=== PATIENT | female | born 1970 | race Caucasian/White ===

== ENCOUNTER 2017-04-02 10:31 | Emergency (ER) | payer BC ==
[2017-04-02 12:54] VITALS: BP 113/67
--- NOTE | 2017-04-02 13:42 | UC ---
Throat Pain/Nasal Meng HPI - HPI Summary HPI Summary: ONE WEEK OF SINUS PRESSURE CONGESTION; FEVER LAST NIGHT. NO COUGH - History of Current Complaint Chief Complaint: UCRespiratory Stated Complaint: SINUS PRESSURE,THROAT,EAR COMPLAINT Time Seen by Provider: 04/02/17 12:13 Hx Obtained From: Patient Hx Last Menstrual Period: 03/22/17 Onset/Duration: Gradual Onset, Lasting Days, Still Present Severity: Moderate Pain Intensity: 0 Pain Scale Used: 0-10 Numeric Cough: None Associated Signs & Symptoms: Positive: Hoarseness, Sinus Discomfort, Nasal Discharge, Fever - Epiglottits Risk Factors Epiglottis Risk Factors: Negative - Allergies/Home Medications Allergies/Adverse Reactions: Allergies Allergy/AdvReac Type Severity Reaction Status Date / Time No Known Allergies Allergy Verified 04/02/17 11:29 Home Medications: Home Medications Montelukast Sodium TAB* [Singulair 10 MG TAB*] 10 mg PO DAILY 04/02/17 [History Confirmed 04/02/17] Multiple Vitamin [Multiple Vitamins] 1 tab PO DAILY 04/02/17 [History Confirmed 04/02/17] PMH/Surg Hx/FS Hx/Imm Hx Previously Healthy: Yes - Surgical History Surgical History: Yes Surgery Procedure, Year, and Place: [place] [facility] - Family History Known Family History: Positive: Unknown Negative: Hypertension - Social History Occupation: Employed Full-time Lives: With Family Alcohol Use: Rare Substance Use Type: None Smoking Status (MU): Never Smoked Tobacco - Immunization History Most Recent Influenza Vaccination: jun 2016 Review of Systems Constitutional: Fever Skin: Negative Eyes: Negative ENT: Sore Throat, Nasal Discharge, Sinus Congestion, Sinus Pain/Tenderness Respiratory: Negative Cardiovascular: Negative Gastrointestinal: Negative Genitourinary: Negative Motor: Negative Neurovascular: Negative Musculoskeletal: Negative Neurological: Negative Psychological: Negative All Other Systems Reviewed And Are Negative: Yes Physical Exam Triage Information Reviewed: Yes Appearance: No Pain Distress, Well-Nourished, Ill-Appearing Vital Signs: Initial Vital Signs Temp 98.7 F 04/02/17 11:25 Pulse 97 04/02/17 11:25 Resp 16 04/02/17 11:25 BP 140/73 04/02/17 11:25 Pulse Ox 98 04/02/17 11:25 Vital Signs Reviewed: Yes Eye Exam: Normal ENT: Positive: Hearing grossly normal, Pharynx normal, TM bulging, TM dull Dental Exam: Normal Neck exam: Normal Neck: Positive: Supple, Nontender Respiratory Exam: Normal Respiratory: Positive: Chest non-tender, Lungs clear, Normal breath sounds, No respiratory distress, No accessory muscle use Cardiovascular Exam: Normal Cardiovascular: Positive: RRR, No Murmur, Pulses Normal Abdominal Exam: Normal Abdomen Description: Positive: Nontender, No Organomegaly Musculoskeletal Exam: Normal Neurological Exam: Normal Psychological Exam: Normal Skin Exam: Normal Throat Pain/Nasal Course/Dx - Differential Dx/Diagnosis Differential Diagnosis/HQI/PQRI: Sinusitis, Tonsillitis, URI Provider Diagnoses: SINUSITIS Discharge - Discharge Plan Condition: Stable Disposition: HOME Prescriptions: Amoxicillin/Clavulanate TAB* [Augmentin TAB 875*] 875 mg PO BID #20 tab Patient Education Materials: Sinusitis (ED) Referrals: Tank Levy MD [Primary Care Provider] -
== END 2017-04-02 12:54 | disposition home or self-care (01) ==
LOC: UCEAST 10:31
DX: J32.9 Chronic sinusitis, unspecified (principal); R50.9 Fever, unspecified
CPT/HCPCS: 99212; G0463

== ENCOUNTER 2017-07-25 10:23 | Emergency (ER) | payer BC ==
[2017-07-25 10:30] VITALS: BP 131/63
--- NOTE | 2017-07-25 10:58 | UC ---
Throat Pain/Nasal Meng HPI - HPI Summary HPI Summary: ONE WEEK OF COUGH, WHEEZING, SINUS CONGESTION. HAD BEEN USING ALBUTEROL INHALER. NO FEVER. - History of Current Complaint Chief Complaint: UCRespiratory Stated Complaint: COUGH WHEEZING SOB HEAD CONGESTION Time Seen by Provider: 07/25/17 10:31 Hx Obtained From: Patient Hx Last Menstrual Period: 06/29 Onset/Duration: Gradual Onset, Lasting Weeks Severity: Moderate Cough: Nonproductive Associated Signs & Symptoms: Positive: Hoarseness - Epiglottits Risk Factors Epiglottis Risk Factors: Negative - Allergies/Home Medications Allergies/Adverse Reactions: Allergies Allergy/AdvReac Type Severity Reaction Status Date / Time No Known Allergies Allergy Verified 04/02/17 11:29 PMH/Surg Hx/FS Hx/Imm Hx Previously Healthy: Yes - Surgical History Surgical History: Yes Surgery Procedure, Year, and Place: [place] [facility]eth - Family History Known Family History: Positive: Unknown Negative: Hypertension - Social History Occupation: Employed Full-time Lives: With Family Alcohol Use: Rare Substance Use Type: None Smoking Status (MU): Never Smoked Tobacco - Immunization History Most Recent Influenza Vaccination: jun 2016 Review of Systems Constitutional: Negative Skin: Negative Eyes: Negative ENT: Sinus Congestion Respiratory: Cough Cardiovascular: Negative Gastrointestinal: Negative Genitourinary: Negative Motor: Negative Neurovascular: Negative Musculoskeletal: Negative Neurological: Negative Psychological: Negative Is Patient Immunocompromised?: No All Other Systems Reviewed And Are Negative: Yes Physical Exam Triage Information Reviewed: Yes Appearance: No Pain Distress, Well-Nourished, Ill-Appearing Vital Signs: Initial Vital Signs Temp 97.7 F 07/25/17 10:28 Pulse 93 07/25/17 10:28 Resp 17 07/25/17 10:28 BP 131/63 07/25/17 10:28 Pulse Ox 100 07/25/17 10:28 Vital Signs Reviewed: Yes Eye Exam: Normal ENT: Positive: Pharynx normal, Nasal congestion, Nasal drainage, TM bulging, TM dull Dental Exam: Normal Neck exam: Normal Neck: Positive: Supple, Nontender, No Lymphadenopathy Respiratory Exam: Other - COUGH Respiratory: Positive: Chest non-tender, Lungs clear, Normal breath sounds, No respiratory distress, No accessory muscle use. Negative: Wheezing - RECENTLY TOOK ALBUTEROL INHALER Cardiovascular Exam: Normal Cardiovascular: Positive: RRR, No Murmur, Pulses Normal Abdominal Exam: Normal Musculoskeletal Exam: Normal Musculoskeletal: Positive: Strength Intact, ROM Intact Neurological Exam: Normal Psychological Exam: Normal Skin Exam: Normal Throat Pain/Nasal Course/Dx - Differential Dx/Diagnosis Differential Diagnosis/HQI/PQRI: Pharyngitis, Sinusitis, Tonsillitis, URI Provider Diagnoses: SINUSITIS; BRONCHITIS WITH BRONCHOSPASM Discharge - Discharge Plan Condition: Stable Disposition: HOME Prescriptions: Amoxicillin/Clavulanate TAB* [Augmentin TAB 875*] 875 mg PO BID #20 tab Benzonatate CAP* [Tessalon 100 MG CAP*] 100 mg PO TID PRN #15 cap PRN Reason: Cough Patient Education Materials: Sinusitis (ED), Acute Bronchitis (ED) Referrals: Tank Levy MD [Primary Care Provider] -
== END 2017-07-25 10:58 | disposition home or self-care (01) ==
LOC: UCEAST 10:23
DX: J32.9 Chronic sinusitis, unspecified (principal); J20.9 Acute bronchitis, unspecified
CPT/HCPCS: 99212; G0463

== ENCOUNTER 2019-09-27 11:35 | Emergency (ER) | payer BC ==
--- OUTSIDE RECORDS SUMMARY | 2019-09-27 11:41 | XMS REPORT | Continuity of Care Document ---
:1970 Author Organization [facility] Address [address] [place] [address] Phone Care Team Providers Name Role Phone Mary Bush MD Unavailable Unavailable Allergies, Adverse Reactions, Alerts Substance Reaction Status No Known Allergies Active Medications Medication Instructions Dosage Effective Dates Status Comments (start - stop) halobetasol Apply thin layer - Active propionate 0.05 % to affected area. topical ointment Rub in well. BID x2w, qhs x2w, qod x4w biw x4w then biw to q1w prn irritation norethindrone take 1 tablet by 1.00 tablet - Active (contraceptive) 0.35 oral route every mg tablet day magnesium 30 mg - Active tablet MULTIVITAMINS Not Available - Active (unknown strength) IRON (unknown take 1 tablet by Not Available - Active strength) oral route every 3 days CALCIUM (unknown Not Available - Active strength) SINGULAIR (unknown Not Available - Active strength) Problems Condition Effective Dates (start - Clinical Status Comments stop) Body mass index (BMI) 37.0-37.9, - adult Lichen sclerosus et atrophicus Human immunodeficiency virus [HIV] - counseling Pruritus vulvae Oth noninflammatory disorders of vulva and perineum 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) w/o abn findings Encounter for oth screening for malignant neoplasm of breast Encounter for surveillance of contraceptive pills Encntr screen mammogram for malignant neoplasm of breast 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) w/o abn findings Encounter for oth screening for malignant neoplasm of breast Encounter for surveillance of contraceptive pills Encntr screen mammogram for malignant neoplasm of breast Encounter for surveillance of contraceptive pills Encounter for oth screening for malignant neoplasm of breast Encounter for oth screening for malignant neoplasm of breast Encounter for surveillance of contraceptive pills 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 Other Agitator Operator.Svc. STI Results Test Name Date and Time Measure Units Reference Range Abnormal Flag Status Comments No information Advance Directives Directive Yes / No Effective Date File Name No information Encounters Encounter Practice Location Reason(s) Diagnoses Date Provider Providers Description For Visit Copied on Encounter OFFICE/OUTPA [facility] Vaginal Lichen sclerosus et Nov-0 Rachelle Referring TIENT VISIT, [facility] [place] a/o Vulvar atrophicus 5-201 Mary. Provider: EST [facility] Itching [address] (chief Zora Bailey, [address]) [address], [address] [place], , [place], [place], [place], [address]. [place], [address]. [id number], tel:[phone] tel:[phone] tel:[phone] [facility] May-0 [facility] [place] 3-201 Mary. [facility] [address] [place] [facility], [address] [place], , [place], [address]. [id number], tel:[phone] tel:[phone] [facility] Human Apr-3 Rachelle Referring [facility] [place] immunodeficiency 0-201 Mary. Provider: [facility] virus [HIV] [address] counselingPruritus Zora Bailey, [address], [address] noninflammatory [place], [address], , [place], disorders of [place]va [place], [place], [place] [address]. [place], [address]. 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 Provider: [facility] w/o abn [address] findingsEncounter [address] [place] for malignant [place], St, St, [place], [place], [place] [address], [place], [address]. [id number], surveillance of [place]. 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 Provider: [facility] w/o abn 8 [address] findingsEncounter [place], [address], [address], [address] [place] for malignant [place], St, St, [place], [place], [place] [address], [place], [address]. [id number], surveillance of [place]. [place] contraceptive tel:[phone] pillsEncntr screen [id number] mammogram for malignant neoplasm of breast [facility] Encounter for Apr-1 [facility] [place] surveillance of [place] [facility] contraceptive 7 . [address] pillsEncounter for [place], [address], [address] [place] malignant neoplasm [place], [place], [place], [address], [id number], [place]. [place] tel:60 tel:[phone] [facility] Encounter for oth Apr-0 [facility] [place] screening for [facility] malignant neoplasm 6 [place]. [address] of breastEncounter [address], [address] for surveillance of [address] contraceptive pills [address], St, [place], [place], [id number], [address]. 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 [facility] [address] [place], [address] [facility], , [place], [place], [address]. [id number], tel:+ [place] [phone] tel:[phone] [facility] [place] Mary. Southern [address] [place], [address] [facility], , [place], [address]. [id number], tel:+ [phone] tel:[phone] [facility] LABORATORY EXAM NOS [facility] [place] . [facility] [address] [place], [address] [facility], , [place], [place], [address]. [id number], tel:+ [place] [phone] tel:[phone] Family History Family Member Diagnosis Age At Onset Father Cancer-CLL leukemia Mother Arthritis Father Hyperlipidemia Brother No history of Myocardial infarction 1st degree relative No hx of cancer of breast, colon, endometrium or ovary Father Arthritis Paternal grandfather Alzheimer's disease Sister No history of Stroke Mother Venous thromboembolism 45 Mother No history of Stroke Maternal grandfather Stroke Mother Blood clots, lung Maternal grandfather Hyperlipidemia Maternal cousin Cancer, breast Sister No history of Myocardial infarction Father Myocardial infarction Maternal grandfather Coronary artery disease Father Coronary artery disease 48 Father Diabetes mellitus Father No history of Stroke Maternal grandfather Hypertension Maternal grandfather Diabetes mellitus Mother No history of Myocardial infarction Brother No history of Stroke Immunizations Vaccine Date Status Comments MMR administered Source: New Immunization Record Hepatitis B administered Source: New Immunization Record Payers Payer name Insurance type Covered republican ID Authorization(s) [facility] [id number] Social History Type Description Quantity Date Captured Comments Alcohol Use Details Unknown Caffeine Use Details Unknown Tobacco Use Status Unknown Smoking Status Never smoker Sex Female Vital Signs Date / Height Weight BMI Pulse Blood Temperature Respiratory Body Head BMI Pulse Inhaled Time: Rate Pressure Rate Surface Circumference percentile Ox Ox Area No information Chief Complaint And Reason For Visit Most recent encounter only, dated 07/18/2019 14:10'. Vaginal a/o Vulvar Itching (chief complaint) Reason For Referral Reason For Referral No information Plan Of Treatment Date Type Action Status No information History Of Present Illness Encounter Date Complaint History Of Present Illness No information Functional Status Date Functional Assessment No information Medications Administered Medication Instructions Dosage Effective Dates (start - stop) Status Comments No information Instructions Date Instruction Additional Information No information Assessments Type Assessment Date assessment Lichen sclerosus et atrophicus Goals Health Concern Goal Type Priority Status Date No information Medical Equipment Description Device [place] Device Identifier Effective Dates (start - stop ) Status No information Mental Status Date Cognitive Assessment No information Health Concerns Observation Date No information Concern Status Date No information
[2019-09-27 12:11] VITALS: BP 121/51
--- NOTE | 2019-09-27 12:21 | UC ---
Throat Pain/Nasal Meng HPI - HPI Summary HPI Summary: 48 yo female presents with sinus symptoms. She tells me that yesterday she developed sinus pressure and congestion. She took nyquill last night, which helped. She did accupuncture this morning to help relieve pressure with little change. She has not been taking anything else OTC. Denies fever, chills, sore throat, cough, rash. - History of Current Complaint Chief Complaint: UCGeneralIllness Stated Complaint: CONGESTION Time Seen by Provider: 09/27/19 12:21 Hx Obtained From: Patient Hx Last Menstrual Period: 09/24/19 Onset/Duration: Sudden Onset Severity: Moderate Pain Intensity: 5 Pain Scale Used: 0-10 Numeric - Allergies/Home Medications Allergies/Adverse Reactions: Allergies Allergy/AdvReac Type Severity Reaction Status Date / Time kiwi Allergy Itching Verified 09/27/19 12:12 pineapple Allergy Itching Verified 09/27/19 12:12 environmental Allergy Congestion Uncoded 09/27/19 12:12 pet dander Allergy Eyes Uncoded 09/27/19 12:12 Itchy/Swollen/Red/Watery zuccini Allergy Itching Uncoded 09/27/19 12:12 Home Medications: Home Medications Calcium Carbonate [Calcium] 2 tab PO DAILY 09/27/19 [History Confirmed 09/27/19] Cbd Salve 1 applic TOPICAL ONCE PRN 09/27/19 [History Confirmed 09/27/19] Dm/PE/Acetaminophen/Doxylamine [Vicks Dayquil-Nyquil Cold-Flu] 1 tab PO ONCE PRN 09/27/19 [History Confirmed 09/27/19] Loratadine/Pseudoephedrine [Claritin-D 12 Hour Tablet] 1 tab PO DAILY PRN [History Confirmed 09/27/19] Magnesium Oxide [Magnesium] 1 tab PO DAILY 09/27/19 [History Confirmed 09/27/19] Norethindrone [Sharobel] 1 tab PO DAILY 09/27/19 [History Confirmed 09/27/19] PMH/Surg Hx/FS Hx/Imm Hx Respiratory History: Asthma - Surgical History Surgical History: Yes Surgery Procedure, Year, and Place: [place] - Family History Known Family History: Positive: Unknown Negative: Hypertension - Social History Lives: With Family Alcohol Use: Rare Substance Use Type: None Smoking Status (MU): Never Smoked Tobacco - Immunization History Most Recent Influenza Vaccination: jun 2016 Review of Systems All Other Systems Reviewed And Are Negative: No Constitutional: Positive: Negative Skin: Positive: Negative Eyes: Positive: Negative ENT: Positive: Sinus Congestion, Sinus Pain/Tenderness Respiratory: Positive: Negative Cardiovascular: Positive: Negative Gastrointestinal: Positive: Negative Neurological: Positive: Negative Psychological: Positive: Negative Physical Exam - Summary Physical Exam Summary: GENERAL: NAD. WDWN. No pain distress. SKIN: No rashes, sores, lesions, or open wounds. HEENT: Head: AT/NC Eyes: EOM intact. Conjunctiva clear without inflammation or discharge. Ears: Hearing grossly normal. TMs intact, no bulging, erythema, or edema. Nose: Nasal mucosa pink and moist. No discharge. TTP maxillary and frontal sinus. Throat: Posterior oropharynx without exudates, erythema, or tonsillar enlargement. Uvula midline. NECK: Supple. Nontender. No lymphadenopathy. CHEST: CTAB. No r/r/w. No accessory muscle use. Breathing comfortably and in no distress. CV: RRR. Pulses intact. Cap refill <2seconds NEURO: Alert. PSYCH: Age appropriate behavior. Triage Information Reviewed: Yes Vital Signs: Initial Vital Signs Temp 98.5 F 09/27/19 12:04 Pulse 83 09/27/19 12:04 Resp 18 09/27/19 12:04 BP 121/51 09/27/19 12:04 Pulse Ox 99 09/27/19 12:04 Vital Signs Reviewed: Yes Throat Pain/Nasal Course/Dx - Course Course Of Treatment: Symptoms <24hours. Suspect viral etiology. Recommend trying mucinex and flonase and f/u if symptoms worsen or persist. - Differential Dx/Diagnosis Provider Diagnosis: Sinus pressure Discharge ED - Sign-Out/Discharge Documenting (check all that apply): Patient Departure All imaging exams completed and their final reports reviewed: No Studies - Discharge Plan Condition: Stable Disposition: HOME Prescriptions: Fluticasone NASAL SPRAY 50MCG* [Flonase NASAL SPRAY 50MCG*] 2 spray BOTH NARES DAILY #1 btl Patient Education Materials: Rhinosinusitis (ED) Referrals: Tank Levy MD [Primary Care Provider] - Additional Instructions: Your symptoms are likely from a viral infection. Viral infections do not respond to antibiotics and are limited to the treatment of symptoms. Viral infections typically run their course in 7-10 days. Drink plenty of fluids, especially if you are running any fever. Use salt water gargles several times a day. Take over the counter acetaminophen (Tylenol) or ibuprofen (Advil, Motrin) according to directions as needed for pain or fever. You may also use Chloraseptic spray or Cepacol lonzenges according to directions which contain a numbing medication and can provide some temporary relief from a sore throat. Return here or follow up with your primary care provider in 7 days if symptoms persist. - Billing Disposition and Condition Condition: STABLE Disposition: Home - Attestation Statements Provider Attestation: This patient was not seen by me. I was available for consult. Chart reviewed. DESTINEE
== END 2019-09-27 12:53 | disposition home or self-care (01) ==
LOC: UCEAST 11:35
DX: J34.89 Other specified disorders of nose and nasal sinuses (principal); J45.909 Unspecified asthma, uncomplicated; Z91.018 Allergy to other foods; Z91.09 Other allergy status, other than to drugs and biological substances
CPT/HCPCS: 99212; G0463